=== PATIENT | male | born 1975 | race Two or more races ===

== ENCOUNTER 2023-10-03 13:36 | Emergency (ER) | payer SELFPAY ==
[2023-10-03] MEDS ORDERED: Tetracaine HCl/PF 0.5% 4 ML Bottle EYERT ONE (15:28)
== END 2023-10-03 16:04 | disposition home or self-care (01) ==
LOC: MW.ED 13:36
DX: S05.01XA Injury of conjunctiva and corneal abrasion without foreign body, right eye, initial encounter (principal); Z79.01 Long term (current) use of anticoagulants; W22.8XXA Striking against or struck by other objects, initial encounter
CPT/HCPCS: 99283; J3490

== ENCOUNTER 2024-02-25 18:41 | Emergency (ER) | payer SELFPAY ==
[2024-02-25] MEDS: Sodium Chloride 0.9% 2.5 ML Syringe FLUSH PRN (19:01)
[2024-02-25] MEDS: Sodium Chloride 0.9% 10 ML Syringe FLUSH PRN (19:01)
[2024-02-25 19:05] LABS: BASOPHILS ABSOLUTE AUTO 0.02 K/uL (0.00-0.20); BASOPHILS PERCENT AUTO 0.3 % (0.0-1.0); EOSINOPHILS ABSOLUTE AUTO 0.12 K/uL (0.00-0.45); EOSINOPHILS PERCENT AUTO 1.9 % (0.0-6.0); HEMOGLOBIN 15.2 g/dL (14.0-18.0); LYMPHOCYTES ABSOLUTE AUTO 1.39 K/uL (1.00-4.80); LYMPHOCYTES PERCENT AUTO 21.9 % (24.0-44.0); MEAN CORPUSCULAR HEMOGLOBIN 29.3 pg (28.0-32.0); MEAN CORPUSCULAR HGB CONC 33.8 g/dL (32.0-36.0); MEAN CORPUSCULAR VOLUME 86.9 fL (83.0-99.0); MEAN PLATELET VOLUME 10.1 fL (9.4-12.4); MONOCYTES ABSOLUTE AUTO 0.75 K/uL (0.00-0.80); MONOCYTES PERCENT AUTO 11.8 % (0.0-8.0); NEUTROPHILS ABSOLUTE AUTO 4.07 K/uL (1.80-7.70); NEUTROPHILS PERCENT AUTO 64.1 % (41.0-71.0); PLATELET COUNT,PLT 209 K/uL (150-400); RED BLOOD CELL COUNT 5.18 M/uL (4.52-5.90); WHITE BLOOD CELL COUNT,WBC 6.35 K/uL (3.9-11.3)
[2024-02-25] MEDS ORDERED: Naloxone 0.4 MG/ML SDV IVPUSH PRN (19:07)
[2024-02-25] MEDS: Morphine 2 MG/ML SYRINGE IVPUSH ONE (19:22)
[2024-02-25] MEDS: Ondansetron 4 MG/2 ML SDV IVPUSH ONE (19:22)
[2024-02-25 19:30] LABS: INR 1.06 (0.86-1.11); PTT,PARTIAL THROMBOPLSTIN TIME 26.8 SEC (23.9-30.7)
[2024-02-25 19:49] LABS: A/G RATIO 1.1 (0.9-1.6); ALANINE AMINOTRANSFERASE,ALT 39 IU/L (14-63); ALBUMIN 3.9 g/dL (3.4-5.0); ALKALINE PHOSPHATASE 97 U/L (46-116); ASPARTATE AMNIOTRANSFERASE,AST 31 IU/L (15-37); BILIRUBIN TOTAL 0.4 mg/dL (0.2-1.0); BLOOD UREA NITROGEN,BUN 19 mg/dL (7.0-18.0); CALCIUM 9.1 mg/dL (8.5-10.1); CARBON DIOXIDE,CO2 28.9 mmol/L (21.0-32.0); CHLORIDE,CL 105 mmol/L (98-107); CREATININE 1.3 mg/dL (0.8-1.3); GLUCOSE RANDOM 89 mg/dL (74-106); LIPASE 47 U/L (16-77); POTASSIUM,K 3.9 mmol/L (3.5-5.1); PROTEIN TOTAL,TP 7.6 g/dL (6.4-8.2); SODIUM,NA 141 mmol/L (136-148)
[2024-02-25 19:54] LABS: ESTIMATED GFR 67 mL/min (>60)
[2024-02-25] MEDS: Iopamidol 755 MG/ML 500 ML Multipack Bottle IVPUSH ONE (20:11)
[2024-02-26] MEDS: Apixaban 5 MG Tab PO ONE (00:13)
[2024-02-26 00:17] VITALS: BP 126/78; PULSE 78
== END 2024-02-26 00:15 | disposition home or self-care (01) ==
LOC: MW.ED 18:41
DX: I77.810 Thoracic aortic ectasia (principal); I82.411 Acute embolism and thrombosis of right femoral vein; I82.431 Acute embolism and thrombosis of right popliteal vein; Z79.01 Long term (current) use of anticoagulants
CPT/HCPCS: 36415; 71275; 71275-26; 80053; 83690; 84484; 85025; 85610; 85730; 93005; 93970; 93970-26; 99285; A9270-GY; J3490; Q9967